=== PATIENT | female | born 1940 | race Caucasian/White ===

== ENCOUNTER 2022-04-22 10:50 | Emergency (ER) | payer MEDICARE ==
[~2022-04-22] VITALS: Ht 160 cm; Wt 61.2 kg
[2022-04-22] MEDS ORDERED: BEBTELOVIMAB 175 MG INJ IV ONE (11:45)
[2022-04-22 12:52] VITALS: BP 127/86
== END 2022-04-22 12:52 | disposition home or self-care (01) ==
LOC: ER 11:30
DX: U07.1 COVID-19 (principal); R05.9 Cough, unspecified; I10 Essential (primary) hypertension
CPT/HCPCS: 71045; 99284